=== PATIENT | male | born 1945 | race Hispanic/Latino ===

== ENCOUNTER → 2017-07-30 | Day surgery (SDC) | payer BC, OTHER ==
[2017-07-26 16:32] LABS: BASOPHILS % 0.7 % (0.0-1.0); EOSINOPHILS # (AUTO) 0.1 (0.0-0.4); EOSINOPHILS % 1.6 % (0.0-6.0); HEMATOCRIT 40.2 % (38.2-49.6); LYMPHOCYTES # (AUTO) 1.7 (1.0-3.2); LYMPHOCYTES % 31.5 % (18.0-39.1); MEAN CORPUSCULAR HEMOGLOBIN 33.3 pg (28-32); MEAN CORPUSCULAR HGB CONC 34.8 g/dL (31-35); MEAN CORPUSCULAR VOLUME 95.5 fL (81-99); MONOCYTES # (AUTO) 0.5 (0.2-0.8); MONOCYTES % 8.4 % (4.4-11.3); NEUTROPHILS # (AUTO) 3.2 (2.1-6.9); NEUTROPHILS % 57.6 % (38.7-80.0); PLATELET COUNT 177 x10e3/uL (140-360); RED BLOOD COUNT 4.21 x10e6/uL (4.3-5.7); RED CELL DISTRIBUTION WIDTH 12.4 % (11.7-14.4)
[2017-07-26 16:44] LABS: ANION GAP 13.6 mmol/L (8-16); BLOOD UREA NITROGEN 16 mg/dL (7-26); BUN/CREATININE RATIO 18 (6-25); CALCIUM 9.2 mg/dL (8.4-10.2); CARBON DIOXIDE 27 mmol/L (22-29); CHLORIDE 103 mmol/L (98-107); CREATININE, SERUM 0.89 mg/dL (0.72-1.25); EST GLOMERULAR FILTRATION RATE > 60 ML/MIN (60-); GLUCOSE 93 mg/dL (74-118); POTASSIUM 4.6 mmol/L (3.5-5.1); SODIUM 139 mmol/L (136-145)
--- NOTE | 2017-07-26 17:16 | Diagnostic Imaging Report ---
PROCEDURE: Frontal and lateral views of the chest. COMPARISON: None. INDICATIONS: PRE-OP ON HERNIA FINDINGS: Lines/tubes: None. Lungs: The lungs are well inflated and clear. There is no evidence of pneumonia or pulmonary edema. Pleura: There is no pleural effusion or pneumothorax. Heart and mediastinum: The heart and the mediastinum are normal. Bones: No acute bony abnormality. IMPRESSION: 1. No acute cardiopulmonary disease. Dictated by: Gatito Banegas M.D. on 07/26/2017 at 17:16 Electronically approved by: Gatito Banegas M.D. on 07/26/2017 at 17:16
[~2017-07-30] MED LIST: BUPIVACAINE 0.25%/EPI 30ML SDV INJ ONE; DEXAMETHASONE SOD PHOS INJ 4 MG/ML VIAL ONE; FENTANYL CITRATE/PF 100MCG/2 ML INJ ONE; LIDOCAINE HCL 1% LOCAL INJ 20 ML VIAL ONE; LIDOCAINE HCL 2% LOCAL INJ 5 ML SDV VIAL INJ ONE; MIDAZOLAM HCL 2 MG/2 ML VIAL ONE; ONDANSETRON HCL INJ 2 MG/ML VIAL ONE; PROPOFOL IV EMULSION 10 MG/ML 20 ML VIAL ONE; SEVOFLURANE INHAL SOLN 250 ML PEN BTL ONE
--- OUTSIDE RECORDS SUMMARY | 2017-07-30 05:35 | XMS REPORT ---
[facility] Address Unknown Phone Unavailable Care Team Providers [employer] Name Role Phone PUJA TODD Unavailable Unavailable Problems This patient has no known problems. Allergies, Adverse Reactions, Alerts This patient has no known allergies or adverse reactions. Medications This patient has no known medications. Results Test Description Test Time Test Comments Text Results Atomic Results Result Comments CHEST 2 VIEWS [place] [address] Patient Name: MAVIS HINSON MR #: [id number] : 1945 Age/Sex: 71/M Req #: [id number] Adm Physician: Ordered by: PUJA TODD MD Report #: [id number] Location: OR Room/Bed: Procedure: [id number] DX/CHEST 2 VIEWS Exam Date: 07/26/17 Exam Time: 1645 REPORT STATUS: Signed PROCEDURE: Frontal and lateral views of the chest. COMPARISON: None. INDICATIONS: PRE-OP ON HERNIA FINDINGS: Lines/tubes: None. Lungs: The lungs are well inflated and clear. There is no evidence of pneumonia or pulmonary edema. Pleura : There is no pleural effusion or pneumothorax. Heart and mediastinum: The heart and the mediastinum are normal. Bones: No acute bony abnormality. IMPRESSION: 1. No acute cardiopulmonary disease. Dictated by: Gatito Rodriguez M.D. on 07/26/2017 at 17:16 Electronically approved by: Gatito Rodriguez M.D. on 07/26/2017 at 17:16 Dictated By: GATITO RODRIGUEZ MD 15 Transcribed By: JEOVANNY on 07/26/171715 COPY TO: PUJA TODD MD
--- NOTE | 2017-07-30 10:18 | Operative Report ---
DATE OF PROCEDURE: July 30, 2017 PREOPERATIVE DIAGNOSIS: Left inguinal hernia. POSTOPERATIVE DIAGNOSIS: Left inguinal hernia. OPERATION PERFORMED: Repair of left inguinal hernia with large Prolene Hernia System. ANESTHESIA: Local 1% Xylocaine and 1/4 percent Marcaine and MAC. COMPLICATIONS: None. ESTIMATED BLOOD LOSS: Minimal. DESCRIPTION OF PROCEDURE: With the patient lying in bed in the supine position, under good IV sedation, the abdomen was prepped with Betadine solution and draped in the usual manner. A standard field block was then performed with 1/4 percent Marcaine and 1% lidocaine with epinephrine including an ilioinguinal nerve block. An incision was then made in the left groin and carried down through the subcutaneous tissue down to the external oblique aponeurosis. External oblique was opened along the length of its fibers, and the external inguinal ring was opened. The cord was then mobilized and retracted. Exploration of the cord revealed the presence of a large lipoma of the cord which was from the cord structures, ligated with 2-0 Vicryl and divided. There was no indirect hernia sac present. There was, however, a large bulging direct hernia, which was then imbricated with a pursestring suture of 2-0 silk. The preperitoneal space was then entered right through the internal ring, and a pocket was created without any difficulty. A large Prolene Hernia System was placed in the preperitoneal space, and the underlay patch was deployed without any problems. The overlay patch was then placed over the floor and split inferolaterally to allow for passage of the cord. The mesh was then sutured to the conjoined tendon and inguinal ligament using interrupted sutures of 2-0 Vicryl. The whole area was thoroughly irrigated. Perfect hemostasis was ascertained. The external oblique aponeurosis was closed with a running suture of 2-0 Vicryl. The subcutaneous tissue was approximated with 3-0 plain, and the skin was closed with clips. A dressing was applied. The sponge, lap and needle count was correct. The patient tolerated the procedure well and returned to the recovery room in stable condition. Job#: [id number]
== END | disposition home or self-care (01) ==
LOC: OR 05:33
PROVIDERS: ATTEND Surgery
DX: K40.90 Unilateral inguinal hernia, without obstruction or gangrene, not specified as recurrent (principal); D17.6 Benign lipomatous neoplasm of spermatic cord; R00.1 Bradycardia, unspecified; Z01.810 Encounter for preprocedural cardiovascular examination; Z01.812 Encounter for preprocedural laboratory examination; Z01.818 Encounter for other preprocedural examination
CPT/HCPCS: 36415; 49505; 71046; 80048; 85025; 93005; C1781; J1100; J2001 ×2; J2250; J2405

== ENCOUNTER → 2017-08-27 | Day surgery (SDC) | payer BC, OTHER ==
[~2017-08-27] MED LIST changes: +DESFLURANE 240 ML BTL INH ONE; +NORCO 5-325 TA1 EACH PO; -SEVOFLURANE INHAL SOLN 250 ML PEN BTL ONE
--- NOTE | 2017-08-27 10:57 | Operative Report ---
DATE OF PROCEDURE: August 27, 2017 PREOPERATIVE DIAGNOSIS: Right inguinal hernia. POSTOPERATIVE DIAGNOSIS: Right inguinal hernia. OPERATION PERFORMED: Repair of right inguinal hernia with extended Prolene hernia system. FIRST ASSIST: ALEJANDRO Davis. ANESTHESIA: General. COMPLICATIONS: None. ESTIMATED BLOOD LOSS: Minimal. DESCRIPTION OF PROCEDURE: With the patient lying in bed in the supine position under good general anesthesia, the abdomen was prepped with Betadine solution and draped in the usual manner. A right inguinal incision was made. It was carried down through the subcutaneous tissue down to the external oblique aponeurosis. External oblique was opened along the length of its fibers and external inguinal ring was opened. The cord was then mobilized and retracted. Exploration of the cord revealed the presence of a lipoma of the cord, which was from the cord structures and ligated with 2-0 Vicryl and divided. There was no indirect hernia sac present. There was, however, a large protruding direct hernia in the direct space. This was imbricated with a pursestring suture of 2-0 silk. After this was done, the preperitoneal space was entered right through the internal ring. A pocket was created without any difficulty. An extended Prolene hernia system was placed in the preperitoneal space, and the underlay patch was deployed without any problems. The overlay patch was then placed over the floor and split inferolaterally to allow for passage of the cord. The mesh was then sutured to the conjoined tendon and inguinal ligament using interrupted sutures of 2-0 Vicryl. The whole area thoroughly irrigated. Perfect hemostasis was ascertained. All layers were infiltrated on the way out with a solution of 0.25% Marcaine and 1% lidocaine mixed in equal parts. External oblique aponeurosis was closed with a running suture of 2-0 Vicryl. The subcutaneous tissue was approximated with 3-0 plain, and the skin was closed with clips. A dressing was applied. The sponge, lap and needle count was correct. Patient tolerated the procedure well and returned to the recovery room in stable condition. Job#: [id number] SILVERIO
== END | disposition home or self-care (01) ==
LOC: OR 07:21
PROVIDERS: ATTEND Surgery
DX: K40.90 Unilateral inguinal hernia, without obstruction or gangrene, not specified as recurrent (principal); D17.6 Benign lipomatous neoplasm of spermatic cord
CPT/HCPCS: 49505; C1781; J1100; J2001 ×2; J2250; J2405